=== PATIENT | female | born 1965 | race Caucasian/White ===

== ENCOUNTER 2019-01-04 11:39 | Emergency (ER) | payer OTHER ==
[~2019-01-04] VITALS: Ht 165.1 cm; Wt 79.5 kg
[2019-01-04 11:48] VITALS: Ht 165.1 cm; Wt 79.5 kg
[2019-01-04] MEDS ORDERED: BUSPAR10 MG PO (11:53)
[2019-01-04] MEDS ORDERED: ZOLOFT100 MG PO (11:53)
[2019-01-04] MEDS ORDERED: ESTRACE2 MG PO (11:53)
[2019-01-04] MEDS ORDERED: ULTRAM50 MG PO (13:33)
[2019-01-04] MEDS ORDERED: ROBAXIN500 MG PO (13:33)
[2019-01-04 13:59] VITALS: BP 108/60
== END 2019-01-04 14:00 | disposition home or self-care (01) ==
LOC: D.ER 11:39
DX: S22.42XA Multiple fractures of ribs, left side, initial encounter for closed fracture (principal); W18.30XA Fall on same level, unspecified, initial encounter; Y93.89 Activity, other specified; Y92.89 Other specified places as the place of occurrence of the external cause